=== PATIENT | female | born 1945 | race Caucasian/White ===

== ENCOUNTER → 2016-11-25 | Outpatient (CLI) | payer OTHER, MEDICARE | LOC: BMCIMAGING 10:18 | PROVIDERS: ATTEND Internal Medicine | DX: Z13.820 Encounter for screening for osteoporosis (principal); M81.0 Age-related osteoporosis without current pathological fracture ==

== ENCOUNTER 2017-08-05 17:56 | Emergency (ER) | payer OTHER, MEDICARE ==
[2017-08-05 18:07] VITALS: TEMP 97.7
--- NOTE | 2017-08-05 19:21 | EDPHY ---
H & P Time Seen by Provider: 08/05/17 19:20 HPI/ROS: Chief complaint. Lightheaded HPI. [onset, timing, severity, modifying factors, similar symptoms previously, recently seen] ROS Constitutional. [no fever/chills, no weakness] Eyes. [no problems with vision] ENT. [no sore throat, no nasal drainage] Cardiovascular. [no chest pain] Respiratory. [no shortness of breath, no cough] Abdominal. [no abdominal pain, no nausea/vomiting, no diarrhea] . [no problems urinating] MS. [no calf pain/swelling, no neck/back pain, no joint pain] Skin. [no rash] Lymph. [no swollen glands] Neuro. [no headache, no dizziness, no difficulty walking or with speech] Smoking Status: Never smoked Constitutional: Initial Vital Signs Temperature (C) 36.5 C 08/05/17 18:04 Heart Rate 66 08/05/17 18:04 Respiratory Rate 18 08/05/17 18:04 Blood Pressure 147/71 H 08/05/17 18:04 O2 Sat (%) 100 08/05/17 18:04 O2 Delivery Mode Room Air Allergies/Adverse Reactions: ciprofloxacin [From Cipro] Allergy (Verified 08/05/17 18:02) Home Medications: Medication Instructions Recorded Simbrinza 1%-0.2% Eye Drops 08/05/17 Zioptan 0.0015% Eye Drops 08/05/17 Zolpidem Tartrate 08/05/17 Departure - Departure Referrals: Jammie Encarnacion MD [Primary Care Provider] - As per Instructions
--- NOTE | 2017-08-05 19:52 | EDPHY ---
H & P Time Seen by Provider: 08/05/17 19:20 HPI/ROS: CHIEF COMPLAINT: Altered mental status HISTORY OF PRESENT ILLNESS: Patient had an episode of altered mental status yesterday that lasted about 3 hr. Started with feeling disoriented some wavy lines in her vision. That she had episode where she had bilateral upper and lower extremity tremors which lasted about 90 min. She has some which she terms as"cognitive dysfunction"when she would try and think of a thought it would end up being that she would repeat the line of a song over and over. She was apparently little bit tangential and had difficulty with cognition, in that she would forget in the middle of a sentence the thought process where she was; but would be redirected by her and be able to return to where she was. Not associated with headache or ataxia or aphasia. Symptoms lasted total about 3 hr and then completely resolved. REVIEW OF SYSTEMS: Eye: As in HPI ENT: no sore throat Cardiac: no chest pain or syncope Pulmonary: no cough or SOB Abdomen: no vomiting, diarrhea, abdominal pain Musculoskeletal: no back pain or neck pain Skin: no rash Neuro: no headache Constitutional: no fever : no urinary symptoms A comprehensive 10 point review of systems is otherwise negative aside from elements mentioned in the history of present illness. PAST MEDICAL HISTORY: Glaucoma Social history: Psychologist, no alcohol General Appearance: Alert and conversant, cooperative. Eyes: No scleral icterus. Pupils equal reactive extraocular motion intact no nystagmus. ENT, Mouth: Normal mucous membranes. Respiratory: Normal respiratory effort, breath sounds equal, lungs are clear to auscultation. Cardiovascular: Regular rate and rhythm. Gastrointestinal: Abdomen is soft and non tender. Neurological: Alert, face symmetric, normal motor and sensory in extremities. Normal [id number] bilaterally, fluent speech, not ataxic. Skin: Warm and dry, no rashes. Musculoskeletal: No peripheral edema. Psychiatric: Not agitated. Emergency Department course/MDM: Discussed with Dr. Prakash ahmadi at 7:45 p.m., recommends noncontrast head CT and office follow-up in the next 24 hr. His impression is less likely to be TIA or neurologic problem requires admission. Differential discussed in detail with the patient including but not limited to intracranial mass, temporal lobe or partial or complex seizure, I think TIA would be less likely, grand mal seizure unlikely. Results discussed with the patient including negative head CT, they state they are comfortable with outpatient neurology follow-up. Smoking Status: Never smoked Constitutional: Initial Vital Signs Temperature (C) 36.5 C 08/05/17 18:04 Heart Rate 66 08/05/17 18:04 Respiratory Rate 18 08/05/17 18:04 Blood Pressure 147/71 H 08/05/17 18:04 O2 Sat (%) 100 08/05/17 18:04 O2 Delivery Mode Room Air Allergies/Adverse Reactions: ciprofloxacin [From Cipro] Allergy (Verified 08/05/17 18:02) Home Medications: Medication Instructions Recorded Simbrinza 1%-0.2% Eye Drops 08/05/17 Zioptan 0.0015% Eye Drops 08/05/17 Zolpidem Tartrate 08/05/17 Medical Decision Making - Diagnostics Imaging Results: Imaging Impressions Head CT 08/05/17 19:48 Impression: 1. No acute abnormalities. 2. Mild supratentorial white matter chronic vascular ischemic changes. Dr. Wen discussed these findings by telephone with MARCUS LANDA on 08/05/2017 at [address] per Nayeli 2028 Departure - Departure Disposition: Home, Routine, Self-Care Clinical Impression: altered mental status, resolved Condition: Good Instructions: Altered Mental Status (ED) Referrals: Jammie Encarnacion MD [Primary Care Provider] - As per Instructions Fab Ahmadi DO [Medical Doctor] - 1-2 days without fail (followup neurology)
[2017-08-05 21:05] VITALS: BP 151/57; PULSE 69; RESP 20; O2SAT 96
== END 2017-08-05 21:05 | disposition home or self-care (01) ==
DX: R41.82 Altered mental status, unspecified (principal)